=== PATIENT | female | born 1990 | race Asian ===

== ENCOUNTER 2018-09-22 20:35 | Inpatient (IN) | payer OTHER ==
[2018-09-22] MEDS ORDERED: PROMETHAZINE HCL 25 MG/1 ML VIAL IVPUSH ONE (22:03)
[2018-09-22] MEDS ORDERED: BUTORPHANOL TARTRATE 1 MG/ML VIAL IVPB ONE (22:03)
--- NOTE | 2018-09-22 22:11 | HP ---
Past Medical History - Primary Care Physician PCP:: Anselmo Gallegos - Admission Chief Complaint: 28yo P0 with at EGA 39w 5d admitted with SROM and in spont labor. History of Present Illness: Unremarkable PNC Fetus with 2VC Vaginal GBS negative History Source: Patient, Medical Record Limitations to Obtaining History: No Limitations - Past Medical History INTERNAL MEDICINE HOSPITALIST: No: Alzheimer's, CVA, Dementia, Migraine, Multiple Sclerosis, Peripheral Neuropathy, Parkinson's, Seizure, Syncope, TIA, Vertigo, Other Cardiovascular: No: AFIB, Aneurysm, Aortic Insufficiency, Aortic Stenosis, CAD, CHF, Deep Vein Thrombosis, HTN, Hyperlipdemia, NE, Mitral Insufficiency, Mitral Stenosis, Murmur, Pulmonary Hypertension, Other Pulmonary: No: Asthma, Bronchitis, Cancer, COPD, O2 Dependent, Pneumonia, Previously Intubated, Pulmonary Embolus, Pulmonary Fibrosis, Sleep Apnea, Other Gastrointestinal: No: Ascites, Cancer, Constipation, Crohn's Disease, Diverticulitis, Diverticulosis, Esophageal Varices, Gastritis, GERD, GI Bleed, Hemorrhoids, Hiatal Hernia, Inflamatory Bowel Disease, Irritable Bowel Disease, Pancreatitis, Peptic Ulcer Disease, Ulcerative Colitis, Other Hepatobiliary: No: Cirrhosis, Cholelithiasis, Cholecystitis, Choledocholithiasis , Hepatitis A, Hepatitis B, Hepatitis C, Other Renal/: No: Renal Failure, Renal Inusuff, BPH, Cancer, Hematuria, Hemodialysis , Neurogenic Bladder, Renal Calculi, UTI, Other Reproductive: No: Ectopic , Endometriosis, Fibroids, PID, Polycystic Ovary Syndrome, Postmenopausal, Other ...: 1 ...Para: 0 Heme/Onc: Yes: Anemia Infectious Disease: No: AIDS, C-Diff, Herpes Zoster, HIV, MRSA, STD's, Tuberculosis, VREF, Other Psych: No: Addictions, Anxiety, Bipolar, Depression, Panic, Psychosis, Schizophrenia, Other Musculoskeletal: No: Bursitis, Chronic low back pain, Hemiparesis, Hemiplegia, Osteoarthritis, Paraplegia, Other Rheumatology: No: Fibromyalgia, Gout, Lupus, Rheumatoid Arthritis, Sarcoidosis, Vasculitis, Other ENT: No: Allergic Rhinitis, Sinusitis, Other Endocrine: No: Kingfisher's Disease, Conroe's Disease, Diabetes Insipidus, Diabetes Mellitus, Hyperparathyroidism, Hyperthyroidism, Hypothyroidism, Osteopenia, SIADH, Other Dermatology: No: Basal Cell, Cellulitis, Eczema, Melanoma, Psoriasis, Squamous Cell, Other - Past Surgical History Past Surgical History: Yes: None Hx Myomectomy: No Hx Transabdominal Cerclage: No - Advance Directives Advance Directives: No: Living Will, Health Care Proxy, DNR, Organ Donor, Tissue Donor, MOLST - Smoking History Smoking history: Never smoked Have you smoked in the past 12 months: No - Alcohol/Substance Use Hx Alcohol Use: No History of Substance Use: reports: None - Social History Usual Living Arrangement: Yes: Alone ADL: Independent Occupation: [employer] History of Recent Travel: No Home Medications - Allergies Allergies/Adverse Reactions: Allergies Allergy/AdvReac Type Severity Reaction Status Date / Time No Known Allergies Allergy Verified 09/21/18 05:12 - Home Medications Home Medications: Ambulatory Orders Iron 1 tab PO DAILY 09/21/18 One Tablet 1 tab PO DAILY 09/21/18 Family Disease History - Family Disease History Family History: Unremarkable Review of Systems - Review of Systems Constitutional: reports: Other (contractions) Eyes: reports: No Symptoms HENT: reports: No Symptoms Neck: reports: No Symptoms Cardiovascular: reports: No Symptoms Respiratory: reports: No Symptoms Gastrointestinal: reports: No Symptoms Genitourinary: reports: No Symptoms Breasts: reports: No Symptoms Reported Musculoskeletal: reports: No Symptoms Integumentary: reports: No Symptoms Neurological: reports: No Symptoms Endocrine: reports: No Symptoms Hematology/Lymphatic: reports: No Symptoms Psychiatric: reports: No Symptoms Pain Intensity: 8 Physical Exam - Maternity Constitutional: Yes: Well Nourished, No Distress, Calm Eyes: Yes: WNL, Conjunctiva Clear HENT: Yes: WNL, Atraumatic, Normocephalic Neck: Yes: WNL, Supple, Trachea Midline Cardiovascular: Yes: WNL, Regular Rate and Rhythm Lungs: Clear to auscultation, Normal air movement - Abdominal Exam/OB Fundal Height: 40 Number of Fetuses: Single Presentation: Vertex Contractions: Yes Regularity: Irregular (q4-6min) Intensity: Mild/Mod Monitor Mode: External Heart Rate (range): 140 Heart Rate Location: Midline Category: I Accelerations: Uniform Decelerations: None - Vaginal Exam/OB Vaginal Bleediing: No Speculum Exam: No Dilatation (cm): 1 Effacement (%): 50 Amniotic Membrane Status: Leaking Nitrazine Test: Positive Amniotic Fluid: Yes: Clear Presentation: Vertex/Position Station: -1 (Adequate gynecoid) - Physical Exam Musculoskeletal: Yes: WNL Extremities: Yes: WNL Edema: No Integumentary: Yes: WNL Deep Tendon Reflex Grade: Normal +2 ...Motor Strength: WNL Psychiatric: Yes: WNL, Alert, Oriented Hemorrhage Risk Assessment - Risk Factors Medium Risk Factors: Yes: None High Risk Factors: Yes: None Risk Score: 1 Risk Level: Medium Risk Imaging - Results Ultrasound: Report Reviewed Assessment/Plan 28yo P0 with at EGA 39w 5d admitted with SROM and in spont labor. Fetus with Category I tracing. Plan to monitor labor at this point. Pt requested pain meds with IV sedation.
[2018-09-22] MEDS ORDERED: DEXTROSE 5%-LACTATED RINGERS 1,000 ML IV SCH (22:15)
[2018-09-22] MEDS ORDERED: PROMETHAZINE HCL 25 MG/1 ML VIAL ONE (22:42)
[2018-09-22] MEDS ORDERED: BUTORPHANOL TARTRATE 2 MG/ML VIAL ONE (22:42)
[2018-09-22 22:47] LABS: BASO % 0.2 % (0-2.0); EOS % 0.2 % (0-4.5); HEMATOCRIT 38.5 % (32.4-45.2); HEMOGLOBIN 12.7 GM/dL (10.7-15.3); LYMPH % 11.8 % (8-40); MCH 33.8 pg (25.7-33.7); MEAN CELL VOLUME 102.4 fl (80-96); MEAN PLT VOLUME 10.4 fl (7.5-11.1); MONO % 5.8 % (3.8-10.2); PLATELET COUNT 280 K/MM3 (134-434); RBC 3.76 M/mm3 (3.60-5.2); RDW 13.2 % (11.6-15.6)
[2018-09-22 23:05] LABS: INR 0.92 (0.83-1.09); PROTHROMBIN TIME (PATIENT) 10.9 SEC (9.7-13.0)
[2018-09-22 23:07] LABS: ACTIVATED PTT 28.2 SECONDS (25.2-36.5)
[2018-09-22 23:11] LABS: CALCIUM 9.9 mg/dL (8.5-10.1); CREATININE 0.6 mg/dL (0.55-1.3); POTASSIUM 3.9 mmol/L (3.5-5.1)
--- NOTE | 2018-09-23 00:49 | PN ---
Progress Note (short form) - Note Progress Note: I was informed by the RN at 12 am that apreliminary HIV test for this patient showed a "positive" HIV P24 result. The lab also informed the RN that a viral load cannot be performed at this hospital in a timely fashion and the results are not going to be available for 2-3 days. I reviewed the ACOG Committee Opinion# 751 from Sep, 1999 that states: "... In contrast, in women with viral loads more than 1,000 copies/mL or unknown viral loads who present at term in labor or with ruptured membranes, it is unclear whether urgent delivery offers the same mitigation of [id number] transmission risk as a scheduled delivery. Some studies have shown a similar risk of transmission for delivery performed for obstetric indications after labor and membrane rupture as for vaginal delivery. In one study, the HIV transmission rate was similar in women undergoing emergency delivery and those delivering vaginally (1.6% versus 1.9%, respectively) (20). A meta-analysis of women with HIV, most of whom were receiving no antiretroviral drugs or only ZDV, demonstrated a 2% increased transmission risk for every additional hour of ruptured membranes ( 16). However, it is not clear how soon after the onset of labor or the rupture of membranes the benefit of delivery is lost (21). Because it is not clear whether delivery after onset of labor reduces the risk of HIV transmission, management of women originally scheduled for delivery who present in labor should be individualized at the time of presentation. In these circumstances, consultation with an expert in HIV may be helpful. Because the delivery plan in the setting of labor must frequently be made quickly, telephone consultation with a 24-hour, 7-days-a- week hotline (eg, the National [facility] [ ]) may be helpful in rapidly developing an individualized plan (11 )." The patient was previously tested for HIV x 2 during care, with "Negative" results. She was given sedation with Stadol and Phenergan earlier today for pain management, making a discussion of this information difficult. The plan it to repeat HIV testing to rule out error. I also plan to contact the National [facility].
[2018-09-23 00:58] VITALS: BMI 25.0
--- NOTE | 2018-09-23 02:28 | PN ---
Progress Note (short form) - Note Progress Note: I spoke to Dr. Hannon (?sp) at the [facility] for expert guidance. The advice was to start the pt on AZT as a precaution. The rapid HIV P24 result has can be a false positive . However , a confirmatory test is sent out and will not result for 2-3 days. The viral load is also unavailable. The data shows that the risk of vertical HIV transmission is reduced in patients with a high VL (>1000 copies/ml) if an elective C/S is done electively and before labor. The data on the effect of delivery mode on the risk of vertical HIV transmission in patients who are in labor with SROM >12hrs is conflicting. There may not be any additional benefit to perform a C/S at this time. The patient is in spontaneous labor since the morning of 09/22/2018 and SROM since about 2pm on 09/22/2018. I had a long discussion with the patient in private and presented the above information. The pt is a [employer] WORK[employer] at [employer]. She denies any HIV exposure, needle stick or high-risk behavior. Her is in [place] and she has not seen him since 2017. The pt states that she was previously tested for HIV at work, and she has HIV testing "negative" in . The patient also, later, requested her sister to come in for discussion. We had reviewed all of the information again. I explained that, if the patient has HIV and the viral load is high, there may be a benefit to doing a C/S but the evidence is conflicting. The transmission can happen in utero, and prior to delivery. There is also a chance that the the test result represents a "false positive". The risks and benefits of C/S were also explained at length, including but not limited to scarring, pain, bleeding, infection, injury to underlying organs and structures, need for additional surgery to repair/treat any problems or complications, complications/injuries, etc. The pt verbalized her understanding. The pt requested some time to consider her options.
--- NOTE | 2018-09-23 02:51 | PN ---
Ante-Partal Exam - Subjective Subjective: Pt with contractions. She and her family are considering a C/S because it might , possibly, decrease the risk vertical HIV transmission. I emphasized that the HIV test results can be false positive, and transmission can happen in labor before delivery. We reviewed the risks of C/S. Vital Signs: Vital Signs Temperature 98.3 F 09/23/18 02:00 Pulse Rate 88 09/23/18 02:00 Respiratory Rate 20 09/23/18 02:00 Blood Pressure 116/69 09/23/18 02:00 O2 Sat by Pulse Oximetry (%) Bleeding: No Headache: No Visual changes: No Right upper quadrant pain: No Pain (scale 1-10): 5 - Contractions Contractions: Yes Regularity: Regular Intensity: Mild/Mod Monitor Mode: External - Exam during Labor Heart Rate: 140 Variability: Moderate Heart Rate Location: Midline Category: I Monitor Accelerations: Present Monitor Decelerations: None Exam: Vaginal Dilatation (cm): 3 Effacement (%): 90 Amniotic Membrane Status: Leaking Amniotic Fluid: Clear Presentation: Vertex Station: 0 - Intrapartum Hemorrhage Risk Medium Risk Factors: None High Risk Factors: None Risk Score: 0 Risk Level: Low Risk - Assessment/Plan Assessment/Plan: Pt is in spontaneous labor, progressing in latent phase. The fetus with category I tracing. She and her family are considering a C/S because it might, possibly, decrease the risk vertical HIV transmission. I emphasized that the HIV test results can be false positive, and transmission can happen in labor before delivery. We reviewed the risks of C/S. I plan to start AZT and continue till delivery. The mode of delivery is undecided at this time.
[2018-09-23] MEDS ORDERED: ZIDOVUDINE INJECTION 1,000 MG in DEXTROSE 5%-WATER - 150 ML IVPB SCH (03:00)
[2018-09-23] MEDS: ZIDOVUDINE INJECTION 1,000 MG in DEXTROSE 5%-WATER - 150 ML IVPB SCH ×2 (03:15→17:41)
[2018-09-23] MEDS ORDERED: OXYTOCIN 15 UNITS/ LR 250 ML 15 UNIT/250 ML INFUS.BAG IVPB SCH (06:00)
[2018-09-23] MEDS ORDERED: FENTANYL/BUPIVACAINE/NS/PF - PCEA - 50 ML DISP.SYRIN EP ONE ×2 (06:11→11:32)
[2018-09-23] MEDS ORDERED: BUPIVACAINE HCL/PF 0.25% (2.5MG/ML) 10 ML VIAL ONE (06:13)
[2018-09-23] MEDS ORDERED: LIDO 2%/EPI 1:200000 PRESRVFRE (20 ML SDVIAL) ONE (06:13)
[2018-09-23] MEDS ORDERED: NALOXONE HCL 0.4 MG/ML VIAL IVPUSH PRN (06:38)
[2018-09-23] MEDS: FENTANYL/BUPIVACAINE/NS/PF - PCEA - 50 ML DISP.SYRIN EP SCH ×2 (06:45→11:45)
[2018-09-23] MEDS ORDERED: ELECTROLYTE-148 SOLN 500 ML IV ONE (07:00)
[2018-09-23] MEDS ORDERED: AMPICILLIN - 2 GM in SODIUM CHLORIDE 100 ML IVPB ONE (07:10)
[2018-09-23] MEDS ORDERED: AMPICILLIN SODIUM 2 GM VIAL ONE (07:10)
[2018-09-23] MEDS: ELECTROLYTE-148 SOLN 1,000 ML IV SCH ×2 (07:30→11:30)
[2018-09-23] MEDS ORDERED: OXYTOCIN 30 UNITS in 0.9% NS 30 UNIT/500 ML INFUS.BAG IVPB ONE (07:50)
[2018-09-23] MEDS: OXYTOCIN 30 UNITS in 0.9% NS 30 UNIT/500 ML INFUS.BAG IVPB SCH (08:00)
--- NOTE | 2018-09-23 08:02 | PN ---
Ante-Partal Exam - Subjective Subjective: Pt w/o complaints. Contractions have spaced out. Vital Signs: Vital Signs Temperature 98.3 F 09/23/18 06:00 Pulse Rate 94 H 09/23/18 07:15 Respiratory Rate 20 09/23/18 07:15 Blood Pressure 115/71 09/23/18 07:15 O2 Sat by Pulse Oximetry (%) 96 09/23/18 07:36 Bleeding: No Headache: No Visual changes: No Right upper quadrant pain: No Pain (scale 1-10): 0 - Contractions Contractions: Yes Regularity: Irregular Intensity: Unaware Monitor Mode: External - Exam during Labor Heart Rate: 140 Variability: Moderate Heart Rate Location: Midline Category: I Monitor Accelerations: Present Monitor Decelerations: None Presentation: Vertex - Intrapartum Hemorrhage Risk Medium Risk Factors: None High Risk Factors: None Risk Score: 0 Risk Level: Low Risk - Assessment/Plan Assessment/Plan: Fetus wit Category I tracing. Plan to augment contractions with pitocin.
[2018-09-23] MEDS ORDERED: DEXTROSE 5%-LACTATED RINGERS 1,000 ML IV SCH ×2 (08:30→12:15)
[2018-09-23] MEDS ORDERED: AMPICILLIN SODIUM 1 GM VIAL ONE ×2 (11:00→14:52)
[2018-09-23] MEDS ORDERED: SODIUM CHLORIDE 100 ML IVPB ONE ×2 (11:01→14:52)
[2018-09-23] MEDS: AMPICILLIN - 1 GM in SODIUM CHLORIDE 100 ML IVPB SCH ×2 (11:20→14:56)
--- NOTE | 2018-09-23 11:24 | PN ---
Ante-Partal Exam - Subjective Subjective: Pt w/o complaints, s/p epidural placed. Vital Signs: Vital Signs Temperature 98.6 F 09/23/18 10:00 Pulse Rate 86 09/23/18 10:30 Respiratory Rate 16 09/23/18 10:30 Blood Pressure 92/57 L 09/23/18 10:30 O2 Sat by Pulse Oximetry (%) 99 09/23/18 10:30 Bleeding: No Headache: No Visual changes: No Right upper quadrant pain: No Pain (scale 1-10): 0 - Contractions Contractions: Yes Regularity: Irregular Intensity: Moderate Monitor Mode: External - Exam during Labor Heart Rate: 150 Variability: Moderate Heart Rate Location: Midline Category: I Monitor Accelerations: Present Monitor Decelerations: None Exam: Vaginal Dilatation (cm): 4 Effacement (%): 90 Amniotic Membrane Status: Ruptured (forebag) Meconium Staining: Light Presentation: Vertex Station: 0 - Intrapartum Hemorrhage Risk Medium Risk Factors: None High Risk Factors: None Risk Score: 0 Risk Level: Low Risk - Assessment/Plan Assessment/Plan: 28yo P0 with at EGA 39w6d in labor. Pt decided to proceed with DOMINIC and vaginal delivery. She is progressing slowly in latent labor. Plan to continue AZT and pitocin
[2018-09-23] MEDS ORDERED: OXYTOCIN 20 UNITS in 0.9% NS 20 UNIT/1,000 ML INFUS.BAG IV ONE (16:21)
--- NOTE | 2018-09-23 16:39 | PN ---
Ante-Partal Exam - Subjective Subjective: No complaints. Pt was pushing and now resting. Vital Signs: Vital Signs Temperature 98.1 F 09/23/18 14:00 Pulse Rate 95 H 09/23/18 15:45 Respiratory Rate 20 09/23/18 15:45 Blood Pressure 114/63 09/23/18 15:45 O2 Sat by Pulse Oximetry (%) 97 09/23/18 15:45 Bleeding: No Headache: No Visual changes: No Right upper quadrant pain: No Pain (scale 1-10): 3 - Contractions Contractions: Yes Regularity: Irregular Intensity: Unaware Monitor Mode: External - Exam during Labor Heart Rate: 145 Variability: Moderate Heart Rate Location: Midline Category: II Monitor Accelerations: Present Monitor Decelerations: Variable (occasionally) Exam: Vaginal Dilatation (cm): 10 Effacement (%): 100 Amniotic Membrane Status: Ruptured Meconium Staining: Light Presentation: Vertex Station: +2 - Intrapartum Hemorrhage Risk Medium Risk Factors: None High Risk Factors: None Risk Score: 0 Risk Level: Low Risk - Assessment/Plan Assessment/Plan: Pt in second stage of labor. The pt is now resting. The pt will resume the pushing. FHT recovered and is now category I but had a prolonged decel earlier.
[2018-09-23] MEDS ORDERED: ceFAZolin SODIUM 1 GM VIAL ONE (19:22)
[2018-09-23] MEDS ORDERED: SODIUM CHLORIDE 0.9% P/F 10 ML VIAL IJ ONE (19:22)
--- NOTE | 2018-09-23 19:23 | PN ---
Ante-Partal Exam - Subjective Subjective: vtx at +3 station. The pt has been pushing for 3.5 hrs. The FHT showed moderate variability and decels with pushing but promt recovery. The pt requested operative assistance. Risks, benefits were discussed and the pt was told that failed operative delivery will follow by a C/S. She agreed and consent was signed. Vital Signs: Vital Signs Temperature 98.1 F 09/23/18 18:00 Pulse Rate 100 H 09/23/18 18:00 Respiratory Rate 22 H 09/23/18 18:00 Blood Pressure 128/84 09/23/18 18:00 O2 Sat by Pulse Oximetry (%) 100 09/23/18 17:45 Bleeding: No Headache: No Visual changes: No Right upper quadrant pain: No Pain (scale 1-10): 9 - Contractions Contractions: Yes Regularity: Regular Intensity: Mod/Strong Monitor Mode: External - Exam during Labor Heart Rate: 120 Variability: Moderate Heart Rate Location: Midline Category: II Monitor Accelerations: Present Monitor Decelerations: Early Exam: Vaginal Dilatation (cm): 10 Effacement (%): 100 Amniotic Membrane Status: Leaking Amniotic Fluid: Clear Presentation: Vertex Station: +3 Remarks: Gynecoid pelvimetry - Intrapartum Hemorrhage Risk Medium Risk Factors: None High Risk Factors: None Risk Score: 0 Risk Level: Low Risk - Assessment/Plan Assessment/Plan: vtx at +3 station. The pt has been pushing for 3.5 hrs. The FHT showed moderate variability and decels with pushing but prompt recovery. The pt requested operative assistance. Risks, alternatives, and benefits were discussed and the pt was told that failed operative delivery will follow by a C/ S. She agreed and consent was signed. Vacuum delivery was attempted. Midline episiotomy was cut. Pt's effort is poor and vacuum was abandoned after 3 pulls. The tracing is now Category I now with moderate variability and early decels. Pt has the urge to push. Decision was made to proceed with C/S. We discussed the risks and benefits of C/S at length, including but not limited to scarring, pain, bleeding, infection, injury to underlying organs and structures, need for additional surgery to repair/treat any problems or complications, complications/injuries, etc. The pt verbalized her understanding and requested to proceed with surgery. The pt is aware that all surgeries have risks and no guarantees can be provided. Pt' s mother an sister are present for discussion.
[2018-09-23] MEDS ORDERED: OXYTOCIN 10 UNITS/ML VIAL ONE (19:51)
[2018-09-23] MEDS ORDERED: morphine SULFATE/Preservative Free 0.5 MG/ML (1cc Syringe) ONE ×7 (20:04→20:28)
[2018-09-23] MEDS ORDERED: morphine SULFATE/Preservative Free 0.5 MG/ML (1cc Syringe) EP ONE (20:17)
[2018-09-23] MEDS ORDERED: ONDANSETRON 4 MG/2 ML VIAL IVPUSH PRN (20:17)
[2018-09-23] MEDS ORDERED: MEPERIDINE HCL 25 MG/ML VIAL IVPUSH ONE (20:45)
[2018-09-23] MEDS ORDERED: BENZOCAINE 28 GM HEMORRHOIDAL OINTMENT TP PRN (21:26)
[2018-09-23] MEDS ORDERED: METHYLERGONOVINE MALEATE 0.2 MG/1 ML AMP IM PRN (21:26)
[2018-09-23] MEDS ORDERED: BENZOCAINE 20% 57 GM BOTTLE TP PRN (21:26)
[2018-09-23] MEDS ORDERED: IBUPROFEN 800 MG/8 ML IJ IVPB PRN (21:26)
[2018-09-23] MEDS ORDERED: WITCH HAZEL 50% (TUCKS) 40 PAD/JAR PAD TP PRN (21:26)
[2018-09-23 21:32] LABS: ARTERIAL BLD GAS O2 SATURATION 76.3 % (95-98); ARTERIAL BLOOD GAS PCO2 43.4 mmHg (35-45); ARTERIAL BLOOD GAS pH 7.32 (7.35-7.45)
--- NOTE | 2018-09-23 21:32 | OP ---
Operative Note - Note: Operative Date: 09/23/18 Pre-Operative Diagnosis: at EGA 39w6d, arrest of descent, failled attempt of vacuum delivery Operation: Primary LT C/S, repair of midline episiotomy Findings: Live baby girl, 9-9, Wt 6lb 13oz, meconium in amniotic fluid, 2VC, normal placenta, uterus, tubes, ovaries Post-Operative Diagnosis: Same as Pre-op Surgeon: Anselmo Gallegos Assembly Person: Danish Young Anesthesiologist/SANITARY PLUMBER: Rj Lazar Anesthesia: Epidural Specimens Removed: Placenta Estimated Blood Loss (mls): 600 Drains & Tubes with Location: Dey cath Drains, Volume Out (mls): 250 Blood Volume Replaced (mls): 0 Fluid Volume Replaced (mls): 1,000 Operative Report Dictated: Yes
[2018-09-23 21:38] LABS: VENOUS PC02 48.2 mmHg (41-51); VENOUS PH 7.29 (7.31-7.41)
[2018-09-23 21:41] LABS: VENOUS PO2 26.7 mmHg (30-40)
[2018-09-23 21:43] LABS: ARTERIAL BLOOD GAS PO2 39.8 mmHg (80-105)
[2018-09-24] MEDS: CEFAZOLIN 1 GM/D5W 1 GM/50 ML BAG IVPB SCH ×3 (02:18→17:28)
[2018-09-24] MEDS: ELECTROLYTE-148 SOLN 1,000 ML IV SCH (07:30)
[2018-09-24 08:03] LABS: BASO % 0.2 % (0-2.0); EOS % 0.1 % (0-4.5); HEMATOCRIT 29.3 % (32.4-45.2); LYMPH % 9.2 % (8-40); MCH 34.8 pg (25.7-33.7); MCHC 33.9 g/dl (32.0-36.0); MEAN CELL VOLUME 102.6 fl (80-96); MEAN PLT VOLUME 10.1 fl (7.5-11.1); MONO % 5.9 % (3.8-10.2); NEUT % 84.6 % (42.8-82.8); PLATELET COUNT 221 K/MM3 (134-434); RBC 2.86 M/mm3 (3.60-5.2); RDW 13.2 % (11.6-15.6); WHITE BLOOD COUNT 18.9 K/mm3 (4.0-10.0)
[2018-09-24] MEDS: PRENATAL VITAMINS W/ FOLIC ACID TABLET (FP) PO SCH (09:00)
[2018-09-24] MEDS: ENOXAPARIN NA (PORCINE) 40 MG/0.4 ML DISP.SYRIN SQ SCH (09:11)
--- NOTE | 2018-09-24 10:46 | PN ---
Post Progress Note - Subjective Subjective: Patient without acute complaints. Reports tolerating oral intake without nausea or vomiting at this time, but had vomiting postop last light. Did not ammbulate yet. Denies fevers or chills. Pain well controlled with oral pain medication.. Passing flatus, no BM. Post Day: 1 Type of Delivery: Primary C/S Vital Signs: Vital Signs Temperature 97.7 F 09/24/18 08:10 Pulse Rate 105 H 09/24/18 08:10 Respiratory Rate 18 09/24/18 09:25 Blood Pressure 103/63 09/24/18 08:10 O2 Sat by Pulse Oximetry (%) 99 09/23/18 21:30 Breast Exam: Yes: Soft Uterus: Yes: Fundus Firm, Fundus below umbilicus, Non-tender Incision: Yes: Dressing dry and intact Abdomen/GI: Yes: Abdomen soft, Passing flatus, Tolerating PO Lochia: Yes: Rubra Lochia, amount: Small Extremities: Yes: Calves non-tender, Edema Perineum: Yes: Episiotomy (repair is intact) Activity: Ambulating - Labs Labs: CBC WBC 18.9 K/mm3 (4.0-10.0) H 09/24/18 07:00 RBC 2.86 M/mm3 (3.60-5.2) L 09/24/18 07:00 Hgb 10.0 GM/dL (10.7-15.3) L 09/24/18 07:00 Hct 29.3 % (32.4-45.2) L D 09/24/18 07:00 MCV 102.6 fl (80-96) H 09/24/18 07:00 MCH 34.8 pg (25.7-33.7) H 09/24/18 07:00 MCHC 33.9 g/dl (32.0-36.0) 09/24/18 07:00 RDW 13.2 % (11.6-15.6) 09/24/18 07:00 Plt Count 221 K/MM3 (134-434) D 09/24/18 07:00 MPV 10.1 fl (7.5-11.1) 09/24/18 07:00 Absolute Neuts (auto) 16.0 K/mm3 (1.5-8.0) H 09/24/18 07:00 Neutrophils % 84.6 % (42.8-82.8) H 09/24/18 07:00 Lymphocytes % 9.2 % (8-40) D 09/24/18 07:00 Monocytes % 5.9 % (3.8-10.2) 09/24/18 07:00 Eosinophils % 0.1 % (0-4.5) 09/24/18 07:00 Basophils % 0.2 % (0-2.0) 09/24/18 07:00 Nucleated RBC % 0 % (0-0) 09/24/18 07:00 Assessment/Plan 28yo P1 s/p primary LT C/S, doing well stable, afebrile. Asymptomatic for anemia. care instructions reviewed. Continue routine care. Ambulation encouraged Plan to f/u HIV final report.
--- NOTE | 2018-09-24 14:06 | PN ---
Progress Note, Physician Chief Complaint: s/p c section post op dayone History of Present Illness: under epidural anesthesia with duramorph for post op pain control - Current Medication List Current Medications: Active Medications Benzocaine (Americaine 20% [place] -) 1 spray TP PRN PRN PRN Reason: Pain - Topical Benzocaine (Americaine Ointment -) 1 applic TP PRN PRN PRN Reason: Pain - Topical Bisacodyl (Dulcolax Suppository -) 10 mg RC PRN PRN PRN Reason: CONSTIPATION Diphenhydramine HCl (Benadryl Injection -) 25 mg IVPUSH Q4H PRN PRN Reason: Pruritis Enoxaparin Sodium (Lovenox -) 40 mg SQ DAILY [facility] Last Admin: 09/24/18 09:11 Dose: 40 mg Fentanyl/Bupivacaine/Sodium Chlor (Bupivicaine 0.125%/Fentanyl 2mcg/Ml Pcea) 50 ml EP [facility]; Protocol Last Admin: 09/23/18 11:45 Dose: 50 ml Oxytocin/Sodium Chloride (Normal Saline+30 Units Oxytocin) 30 unit in 500 mls @ 1 mls/hr IVPB TITR [facility]; Protocol Last Titration: 09/23/18 13:10 Dose: 0.18 unit/hr, 3 mls/hr Parenteral Electrolytes (Plasma-Lyte 148 -) 1,000 mls @ 125 mls/hr IV [facility] Last Admin: 09/23/18 11:30 Dose: 125 mls/hr Cefazolin Sodium (Ancef 1 Gm Premixed Ivpb -) 1 gm in 50 mls @ 100 mls/hr IVPB Q8H-IV BAYRON Stop: 09/25/18 01:59 Last Admin: 09/24/18 10:34 Dose: 100 mls/hr Ibuprofen (Motrin -) 600 mg PO Q4H PRN PRN Reason: PAIN LEVEL 1 - 3 Ibuprofen (Caldolor Injection -) 800 mg IVPB Q8H PRN PRN Reason: PAIN LEVEL 1-5 Last Admin: 09/24/18 08:59 Dose: 800 mg Methylergonovine Maleate (Methergine Injection -) 0.2 mg IM Q4H PRN PRN Reason: Excessive Bleeding (L&D) Naloxone HCl (Narcan -) 0.4 mg IVPUSH PRN PRN PRN Reason: Sedation Ondansetron HCl (Zofran Injection) 4 mg IVPUSH Q4H PRN PRN Reason: NAUSEA Last Admin: 09/24/18 07:40 Dose: 4 mg Oxycodone HCl (Roxicodone -) 5 mg PO Q4H PRN PRN Reason: PAIN LEVEL 4 - 6 Multivit/Folic Acid/Iron ( Vitamins (Sjr) -) 1 tab PO DAILY BAY[facility] Last Admin: 09/24/18 09:00 Dose: 1 tab Senna/Docusate Sodium (Pericolace -) 2 tablet PO HS PRN PRN Reason: CONSTIPATION Simethicone (Mylicon -) 80 mg PO Q4H PRN PRN Reason: GAS Witch Xin/Glycerin (Tucks Pads -) 1 pad TP PRN PRN PRN Reason: Pain - Topical - Objective Vital Signs: Vital Signs Temperature 98.6 F 09/24/18 12:00 Pulse Rate 90 09/24/18 12:00 Respiratory Rate 16 09/24/18 12:56 Blood Pressure 96/67 09/24/18 12:00 O2 Sat by Pulse Oximetry (%) 99 09/23/18 21:30 Constitutional: Yes: Well Nourished Cardiovascular: Yes: WNL Respiratory: Yes: WNL Gastrointestinal: Yes: WNL Labs: CBC, BMP 09/24/18 07:00 09/22/18 22:30 INR, PTT INR 0.92 (0.83-1.09) 09/22/18 22:30 Assessment/Plan No adverse anesthetic effects, pain controlled, dept of anesthesiology will sign off care at this time
[2018-09-24] MEDS: IBUPROFEN 600 MG TABLET (FP) PO PRN ×2 (17:28→21:48)
[2018-09-24] MEDS: SIMETHICONE 80 MG TAB.CHEW (FP) PO PRN ×2 (17:29→21:48)
[2018-09-24] MEDS: oxyCODONE HCL 5 MG TABLET PO PRN (17:29)
[2018-09-24] MEDS: FENTANYL/BUPIVACAINE/NS/PF - PCEA - 50 ML DISP.SYRIN EP SCH (19:20)
--- NOTE | 2018-09-24 20:08 | OP ---
DATE OF OPERATION: 09/23/2018 PREOPERATIVE DIAGNOSIS: at estimated gestational age of 39 weeks and 6 days, arrest of descent, failed attempt of vacuum delivery. POSTOPERATIVE DIAGNOSIS: at estimated gestational age of 39 weeks and 6 days, arrest of descent, failed attempt of vacuum delivery, delivered. PROCEDURE: Primary low transverse section, repair of midline episiotomy. SURGEON: Anselmo Gallegos MD AFFILIATE MARKETING COORDINATOR: JENN Terrazas ANESTHESIOLOGIST: Rj Lazar MD ANESTHESIA: Epidural. COMPLICATIONS: None. ESTIMATED BLOOD LOSS: 600 mL. IV FLUIDS: 1000 mL. URINE OUTPUT: 250 mL clear urine at the end of the procedure. PATHOLOGY: Placenta. FINDINGS: A live baby girl in vertex presentation. Meconium in amniotic fluid was noted. Apgars 9 and 9. A normal placenta with a 2-vessel umbilical cord. Normal uterus, tubes, and ovaries. Baby's weight 6 pounds, 13 ounces. DESCRIPTION OF PROCEDURE: The patient was managed during her labor and delivery. She had achieved a full dilation of 10 cm of her cervix. The vertex was in right occiput posterior and +3 station. In the labor room, a vacuum delivery was attempted; however, after the 3 pulls, the vacuum delivery was abandoned, and the decision was made to proceed with a section. heart rate remained category 1. Anesthesia was notified. The surgical asst was called. The Neonatology was notified of the decision to switch from vacuum delivery to section. The risks, benefits, and alternatives of section were discussed with the patient. The consent form was reviewed and signed. The patient asked questions and verbalized her understanding. The patient was then brought to the OR with the IV running. She was placed on the surgical table in a supine position. The epidural anesthesia was bolused, and the level was found to be adequate. The patient was prepped and draped in the usual sterile fashion. A Dey catheter was left to drain to gravity. The time-out procedure was conducted as per standard protocol. A Pfannenstiel skin incision was made with the knife approximately 2 cm above the pubic symphysis. The incision was carried down to the level of the fascia with a knife. The fascia was incised in the midline, and the incision was extended bilaterally using Waterman scissors. The rectus muscles were in the midline using sharp and blunt dissection. The peritoneum was identified and entered sharply. The peritoneal incision was extended superiorly and inferiorly. The bladder peritoneum was then dissected away from the lower uterine segment using sharp dissection. The bladder was reflected downward using a Darshana retractor. The lower uterine segment was incised transversely using a knife. The incision was extended bilaterally using bandage scissors. The baby was delivered from vertex presentation and without complications. The baby was crying spontaneously immediately upon delivery. The umbilical cord was clamped and cut. The baby was handed to the awaiting sanitation associate. The placenta was then removed manually and without complications. The uterus was exteriorized and cleared of all clots and debris. The uterine incision was repaired using a 0 Biosyn suture with good hemostasis and approximation. The uterine incision was then imbricated using a secondary layer of closure with a 0 Biosyn suture. The bladder peritoneum was reapproximated using a 0 Biosyn suture. The uterus was replaced into the abdominal/pelvic cavity. The operative site was irrigated using copious amounts of normal saline. Once the saline was aspirated, good hemostasis was confirmed. The parietal peritoneum was closed using a 2-0 chromic suture. The rectus muscles were approximated in the midline using several interrupted 2-0 chromic sutures. The fascia was closed using a 0 Vicryl suture. The skin was closed using a 4-0 Vicryl suture with a subcutaneous stitch. Sponge, lap, needle counts were correct. The patient tolerated the procedure well, and she was transferred to the recovery room in stable condition and awake. A midline perineal episiotomy was repaired after the section was completed, while she was still on the surgical table. The repair of episiotomy was performed in a standard fashion and without complication. Excellent approximation was noted, and the patient tolerated episiotomy repair without any problems. Rey [id number]
[2018-09-24] MEDS ORDERED: BISACODYL 10 MG SUPP.RECT RC PRN (21:26)
[2018-09-24] MEDS: ACETAMINOPHEN 325 MG TABLET (FP) PO PRN (21:49)
[2018-09-24] MEDS: SENNOSIDES/DOCUSATE COMBO (SENNA PLUS) TABLET (UD) PO PRN (21:49)
[2018-09-25] MEDS: FENTANYL/BUPIVACAINE/NS/PF - PCEA - 50 ML DISP.SYRIN EP SCH (08:05)
[2018-09-25] MEDS: PRENATAL VITAMINS W/ FOLIC ACID TABLET (FP) PO SCH (09:09)
[2018-09-25] MEDS: ENOXAPARIN NA (PORCINE) 40 MG/0.4 ML DISP.SYRIN SQ SCH (09:09)
[2018-09-25] MEDS: IBUPROFEN 600 MG TABLET (FP) PO PRN ×3 (09:09→22:40)
[2018-09-25] MEDS: ACETAMINOPHEN 325 MG TABLET (FP) PO PRN ×2 (09:10→22:41)
[2018-09-25] MEDS: SIMETHICONE 80 MG TAB.CHEW (FP) PO PRN ×3 (09:10→22:40)
--- NOTE | 2018-09-25 10:18 | PN ---
Post Progress Note - Subjective Subjective: Patient without acute complaints. Reports tolerating oral intake without nausea or vomiting. Ambulating without dizziness. Denies fevers or chills. Pain well controlled with oral pain medication. Pumping without difficulty, giving formula to the baby, awaiting HIV test results Passing flatus. Post Day: 2 Type of Delivery: Primary C/S Vital Signs: Vital Signs Temperature 98.2 F 09/25/18 09:00 Pulse Rate 92 H 09/25/18 09:00 Respiratory Rate 18 09/25/18 09:00 Blood Pressure 133/65 09/25/18 09:00 O2 Sat by Pulse Oximetry (%) 99 09/24/18 22:00 Breast Exam: Yes: Soft Uterus: Yes: Fundus Firm, Fundus @ umbilicus Incision: Yes: Dressing dry and intact Abdomen/GI: Yes: Abdomen soft Lochia: Yes: Rubra Lochia, amount: Small Extremities: Yes: Calves non-tender Perineum: Yes: Intact Activity: Other (in the chair) - Labs Labs: CBC WBC 18.9 K/mm3 (4.0-10.0) H 09/24/18 07:00 RBC 2.86 M/mm3 (3.60-5.2) L 09/24/18 07:00 Hgb 10.0 GM/dL (10.7-15.3) L 09/24/18 07:00 Hct 29.3 % (32.4-45.2) L D 09/24/18 07:00 MCV 102.6 fl (80-96) H 09/24/18 07:00 MCH 34.8 pg (25.7-33.7) H 09/24/18 07:00 MCHC 33.9 g/dl (32.0-36.0) 09/24/18 07:00 RDW 13.2 % (11.6-15.6) 09/24/18 07:00 Plt Count 221 K/MM3 (134-434) D 09/24/18 07:00 MPV 10.1 fl (7.5-11.1) 09/24/18 07:00 Absolute Neuts (auto) 16.0 K/mm3 (1.5-8.0) H 09/24/18 07:00 Neutrophils % 84.6 % (42.8-82.8) H 09/24/18 07:00 Lymphocytes % 9.2 % (8-40) D 09/24/18 07:00 Monocytes % 5.9 % (3.8-10.2) 09/24/18 07:00 Eosinophils % 0.1 % (0-4.5) 09/24/18 07:00 Basophils % 0.2 % (0-2.0) 09/24/18 07:00 Nucleated RBC % 0 % (0-0) 09/24/18 07:00 Assessment/Plan 28yo P1 s/p Primary c/section for failed maternal effort Awaiting final HIV testing otherwise afebrile, VSS WBC mildly elevated, repeat CBC for 09/26/18 ordered encourage ambulation continue routine care
[2018-09-25] MEDS: oxyCODONE HCL 5 MG TABLET PO PRN (15:34)
--- NOTE | 2018-09-25 17:36 | PATH ---
Surgical Pathology Report Patient Name: CORINNE ELDER Med. Rec. #: [id number] /Age/Gender: 1990 (Age: 28) / F Account: [id number] Location: [facility] OBS/GROUP MANAGER Taken: 09/23/2018 Received: 09/24/2018 Reported: 09/25/2018 Physicians: Anselmo Gallegos M.D. Specimen(s) Received PLACENTA Clinical History 39.6 week gestational, HIV positive results Final Diagnosis PLACENTA: THIRD TRIMESTER PLACENTA. TWO VESSEL CORD (SINGLE UMBILICAL ARTERY). MEMBRANES WITH NO DIAGNOSTIC ABNORMALITIES. Electronically Signed Claribel Phillips M.D. Gross Description The specimen is received fresh labeled placenta and is a 515 gram, 19 x18 x 2.1cm. placenta with attached membranes and umbilical cord. The attached membranes are glistening, translucent, and insert marginally. The umbilical cord measures 14 cm. in length and averages 0.9 cm. in diameter. The cord inserts centrally, 5 centimeter to the nearest margin. No true knots or strictures are identified. Cut surface of the umbilical cord reveals 2 vessels. Sectioning reveals red-brown, spongy parenchyma. No lesions are identified. Director Social Welfare sections are submitted in three cassettes as follows: 1- membrane rolls and umbilical cord; 2-3- full thickness sections of placenta KWS/09/24/2018 [place]/09/24/2018
[2018-09-25 18:13] LABS: HEP B CORE AB, IGM Negative (Negative); HEP B CORE AB, TOT Negative (Negative)
[2018-09-25] MEDS: SENNOSIDES/DOCUSATE COMBO (SENNA PLUS) TABLET (UD) PO PRN (22:41)
[2018-09-26 07:16] LABS: BASO % 0.5 % (0-2.0); EOS % 1.3 % (0-4.5); HEMOGLOBIN 9.4 GM/dL (10.7-15.3); MCH 34.7 pg (25.7-33.7); MCHC 33.6 g/dl (32.0-36.0); MEAN CELL VOLUME 103.2 fl (80-96); MEAN PLT VOLUME 8.8 fl (7.5-11.1); MONO % 4.3 % (3.8-10.2); NEUT % 79.9 % (42.8-82.8); PLATELET COUNT 274 K/MM3 (134-434); RBC 2.72 M/mm3 (3.60-5.2); RDW 13.5 % (11.6-15.6); WHITE BLOOD COUNT 11.4 K/mm3 (4.0-10.0)
--- NOTE | 2018-09-26 07:54 | PN ---
Post Progress Note - Subjective Subjective: Patient without acute complaints. Reports tolerating oral intake without nausea or vomiting. Ambulating without dizziness. Denies fevers or chills. Pain well controlled with oral pain medication. Pumping/breast feeding without issue. Type of Delivery: Primary C/S Vital Signs: Vital Signs Temperature 98.1 F 09/25/18 22:00 Pulse Rate 96 H 09/25/18 22:00 Respiratory Rate 18 09/25/18 22:00 Blood Pressure 120/68 09/25/18 22:00 O2 Sat by Pulse Oximetry (%) 99 09/24/18 22:00 Breast Exam: Yes: Soft Uterus: Yes: Fundus Firm, Fundus below umbilicus, Non-tender Incision: Yes: Sutures intact Abdomen/GI: Yes: Abdomen soft, Tolerating PO Lochia: Yes: Rubra Lochia, amount: Small Extremities: Yes: Calves non-tender Perineum: Yes: Intact Activity: Ambulating - Labs Labs: CBC WBC 18.9 K/mm3 (4.0-10.0) H 09/24/18 07:00 RBC 2.86 M/mm3 (3.60-5.2) L 09/24/18 07:00 Hgb 10.0 GM/dL (10.7-15.3) L 09/24/18 07:00 Hct 29.3 % (32.4-45.2) L D 09/24/18 07:00 MCV 102.6 fl (80-96) H 09/24/18 07:00 MCH 34.8 pg (25.7-33.7) H 09/24/18 07:00 MCHC 33.9 g/dl (32.0-36.0) 09/24/18 07:00 RDW 13.2 % (11.6-15.6) 09/24/18 07:00 Plt Count 221 K/MM3 (134-434) D 09/24/18 07:00 MPV 10.1 fl (7.5-11.1) 09/24/18 07:00 Absolute Neuts (auto) 16.0 K/mm3 (1.5-8.0) H 09/24/18 07:00 Neutrophils % 84.6 % (42.8-82.8) H 09/24/18 07:00 Lymphocytes % 9.2 % (8-40) D 09/24/18 07:00 Monocytes % 5.9 % (3.8-10.2) 09/24/18 07:00 Eosinophils % 0.1 % (0-4.5) 09/24/18 07:00 Basophils % 0.2 % (0-2.0) 09/24/18 07:00 Nucleated RBC % 0 % (0-0) 09/24/18 07:00 Assessment/Plan 28yo P1 s/p primary LT C/S, doing well stable, afebrile. Asymptomatic for anemia. Post op care reviewed. Continue routine care. Ambulation encouraged Advance diet as tolerated. HIV test is negative
[2018-09-26] MEDS: ACETAMINOPHEN 325 MG TABLET (FP) PO PRN ×3 (08:00→22:39)
[2018-09-26] MEDS: SIMETHICONE 80 MG TAB.CHEW (FP) PO PRN ×3 (08:00→22:40)
[2018-09-26] MEDS: IBUPROFEN 600 MG TABLET (FP) PO PRN ×3 (08:01→22:38)
[2018-09-26] MEDS: ENOXAPARIN NA (PORCINE) 40 MG/0.4 ML DISP.SYRIN SQ SCH (09:45)
[2018-09-26] MEDS: PRENATAL VITAMINS W/ FOLIC ACID TABLET (FP) PO SCH (09:45)
[2018-09-26] MEDS: SENNOSIDES/DOCUSATE COMBO (SENNA PLUS) TABLET (UD) PO PRN (22:40)
[2018-09-26] MEDS: OXYTOCIN 30 UNITS in 0.9% NS 30 UNIT/500 ML INFUS.BAG IVPB SCH (23:53)
[2018-09-26] MEDS: AMPICILLIN - 1 GM in SODIUM CHLORIDE 100 ML IVPB SCH (23:55)
--- NOTE | 2018-09-27 07:34 | PN ---
Post Progress Note - Subjective Subjective: Patient without acute complaints. Reports tolerating oral intake without nausea or vomiting. Ambulating without dizziness. Denies fevers or chills. Pain well controlled with oral pain medication. Started yesterday Passing flatus, moved bowels Post Day: 4 Type of Delivery: Primary C/S Vital Signs: Vital Signs Temperature 98.3 F 09/26/18 22:00 Pulse Rate 97 H 09/26/18 22:00 Respiratory Rate 18 09/26/18 22:00 Blood Pressure 116/75 09/26/18 22:00 O2 Sat by Pulse Oximetry (%) 99 09/24/18 22:00 Breast Exam: Yes: Soft Uterus: Yes: Fundus Firm, Fundus below umbilicus Incision: Yes: Sutures intact. No: Redness, Oozing Abdomen/GI: Yes: Abdominal Distention (mild, soft), Tender (incisional), Passing flatus, Tolerating PO Lochia: Yes: Serosa Lochia, amount: Small Extremities: Yes: Calves non-tender, Edema (trace) Perineum: Yes: Episiotomy Activity: Ambulating - Labs Labs: CBC WBC 11.4 K/mm3 (4.0-10.0) H 09/26/18 06:55 RBC 2.72 M/mm3 (3.60-5.2) L 09/26/18 06:55 Hgb 9.4 GM/dL (10.7-15.3) L 09/26/18 06:55 Hct 28.0 % (32.4-45.2) L 09/26/18 06:55 MCV 103.2 fl (80-96) H 09/26/18 06:55 MCH 34.7 pg (25.7-33.7) H 09/26/18 06:55 MCHC 33.6 g/dl (32.0-36.0) 09/26/18 06:55 RDW 13.5 % (11.6-15.6) 09/26/18 06:55 Plt Count 274 K/MM3 (134-434) D 09/26/18 06:55 MPV 8.8 fl (7.5-11.1) D 09/26/18 06:55 Absolute Neuts (auto) 9.1 K/mm3 (1.5-8.0) H 09/26/18 06:55 Neutrophils % 79.9 % (42.8-82.8) 09/26/18 06:55 Lymphocytes % 14.0 % (8-40) D 09/26/18 06:55 Monocytes % 4.3 % (3.8-10.2) 09/26/18 06:55 Eosinophils % 1.3 % (0-4.5) D 09/26/18 06:55 Basophils % 0.5 % (0-2.0) 09/26/18 06:55 Nucleated RBC % 0 % (0-0) 09/26/18 06:55 Assessment/Plan 28 yo POD # 4 s/p 1 CD, afebrile, vital signs stable, doing well 1. Patient stable for discharge home today. 2. Patient encouraged to contact MD for: - Severe pain not controlled by oral pain medication - Fevers or chills - Nausea or vomiting, intolerance of oral intake - Incision redness, tenderness or discharge 3. Patient to follow up in office in 1-2 weeks for incision check, 4-6 weeks for visit
[2018-09-27 08:06] VITALS: BP 128/67; PULSE 72; TEMP 98.5
--- NOTE | 2018-09-27 09:02 | DS ---
Physical Exam-ECOLOGY TEACHER Vital Signs: Vital Signs Temperature 98.5 F 09/27/18 08:01 Pulse Rate 72 09/27/18 08:01 Respiratory Rate 18 09/27/18 08:01 Blood Pressure 128/67 09/27/18 08:01 O2 Sat by Pulse Oximetry (%) 99 09/24/18 22:00 Labs: CBC, BMP 09/26/18 06:55 09/22/18 22:30 Delivery - Delivery Type of Anesthesia: Epidural Episiotomy/Laceration: Midline EBL (cc): 600 Delivery, Single - Stages of Labor Date 1st Stage Initiatied: 09/22/18 Time 1st Stage Initiated: 14:00 Date 2nd Stage Initiated: 09/23/18 Time 2nd Stage Initiated: 06:00 Date of Delivery: 09/23/18 Time of Delivery: 19:52 Time Placenta Delivered: 19:53 - Condition of Banking Attorney/Renovation Plant Supervisor Present: Yes Name: Irene Barnhart Infant Gender: Female Position: Right, OA Total Hours ROM (Hrs/Mins): 29 HOURS/52 MINUTES - 1 Minute Total Score: 9 5 Minutes Total Score: 9 - [place] Feeding Plan Initial Plan: Elected not to breastfeed exclusively throughout hospitalization Discharge Summary Reason For Visit: LABOR Current Active Problems Anemia (Acute) delivery delivered (Acute) Procedures: Principal: Delivery Other Procedures: Vacuum assisted delivery (failed); augmentation of labor Hospital Course: Patient admitted with SROM, HIV screen positive Started on AZT Augmented with pitocin Progressed to fully diated, required vacuum assistance of delivery, failed vacuum attempt proceeded with delivery POD # 1 patient ambulating, voiding and passing gas CBC with mild asymptomatic anemia HIV confirmation NEGATIVE Patient fulfilled all criteria for discharge home POD #4 Condition: Good - Instructions Diet, Activity, Other Instructions: RTO 1 wk for incision check, 4-6 wks for PP visit Physical activity Resume your normal everyday activity as tolerated no heavy lifting or exercise until seen by your surgeon. You may walk unlimited isatu of and climb stairs. You may resume driving the car when you feel safe and comfortable behind the wheel. No sexual activity as instructed. Wound care If you have a bandage, leave it on, and keep dry for 48-72 hours. After that time discard the outer bandage. If they are tapes on the skin under the out of bandage leave them in place. They will peel off in the next 7 to 10 days. Do Not Peel them off. You may shower the day after surgery. If there are tapes present on the skin, you may shower over them. Diet There are no dietary restrictions. Eat healthy, high-fiber foods. Drink 6 to 8 glasses of liquid each day. This will assist in keeping your bowels are regular. Pain management You may take Tylenol or acetaminophen or Ibuprofen (for example, Motrin, Advil etc.) from my pain prescription medication is ordered should be taken as prescribed for moderate to severe pain. Call MD for any of the following: Severe pain not relieved by medication Fever of 101 or higher Excessive bleeding or drainage on dressing Inability to urinate Referrals: Anselmo Gallegos MD [Staff Physician] - Casimiro Guerra MD [Staff Physician] - Disposition: HOME - Home Medications Comprehensive Discharge Medication List: Ambulatory Orders Multivit-Min/Iron/Folic Acid/K [Multi-Day Plus Minerals Tablet] 1 tab PO BID 04/02 Doxycycline Monohydrate [Monodox] 100 mg PO BID 3 Days #6 capsule 09/27/18 Oxycodone HCl/Acetaminophen [Percocet 5-325 mg Tablet] 1 tab PO Q6H #7 tablet MDD 4 09/27/18
[2018-09-27] MEDS: ENOXAPARIN NA (PORCINE) 40 MG/0.4 ML DISP.SYRIN SQ SCH (09:15)
[2018-09-27] MEDS: PRENATAL VITAMINS W/ FOLIC ACID TABLET (FP) PO SCH (09:15)
== END 2018-09-27 13:10 | disposition home or self-care (01) | DRG 540 ==
LOC: JDEL 20:35 → UNDOADMIN 21:48 → JLDR 21:48 → J3W 09-23 23:53
PROVIDERS: ADMIT Obstetrics & Gynecology; ATTEND Obstetrics & Gynecology
PROC: 0W8NXZZ Division of Female Perineum, External Approach (ICD-10-PCS; 2018-09-22)
PROC: 10D00Z1 Extraction of Products of Conception, Low, Open Approach (ICD-10-PCS; principal; 2018-09-23)
DX: O32.4XX0 Maternal care for high head at term, not applicable or unspecified (principal); D64.9 Anemia, unspecified; O76 Abnormality in fetal heart rate and rhythm complicating labor and delivery; O66.5 Attempted application of vacuum extractor and forceps; O99.02 Anemia complicating childbirth; Z3A.39 39 weeks gestation of pregnancy; Z37.0 Single live birth
CPT/HCPCS: 36415; 36600; 59025; 80048; 82803; 85025; 85610; 85730; 86593; 86704; 86705; 86706; 86707; 86803; 86850; 86900; 86901; 87389; 87536; 88307-TC

== ENCOUNTER 2022-06-30 04:45 | Day surgery (SDC) | payer OTHER ==
[2022-06-28 13:49] VITALS: BMI 51.6
[2022-06-30] MEDS ORDERED: PROPOFOL 20 ML ONE (15:47)
[2022-06-30] MEDS ORDERED: MIDAZOLAM HCL 2 MG/2 ML SINGLE DOSE VIAL ONE (15:48)
[2022-06-30] MEDS ORDERED: ceFAZolin SODIUM 1 GM VIAL IVPB ONE (16:03)
[2022-06-30] MEDS ORDERED: KETOROLAC TROMETHAMINE 30 MG/1 ML VIAL ONE (16:09)
[2022-06-30] MEDS ORDERED: ceFAZolin SODIUM 1 GM VIAL ONE (16:09)
[2022-06-30] MEDS ORDERED: DEXAMETHASONE SOD PHOSPHATE 4 MG/1 ML VIAL ONE (16:09)
[2022-06-30] MEDS ORDERED: ONDANSETRON 4 MG/2 ML VIAL ONE (16:09)
[2022-06-30] MEDS ORDERED: IBUPROFEN 800 MG/8 ML IJ IVPB PRN (16:10)
[2022-06-30] MEDS ORDERED: IBUPROFEN 600 MG TABLET (FP) PO PRN (16:10)
[2022-06-30] MEDS ORDERED: ONDANSETRON 4 MG/2 ML VIAL IVPUSH PRN ×2 (16:10→16:22)
[2022-06-30] MEDS ORDERED: oxyCODONE HCL 5 MG TABLET PO PRN ×2 (16:10→16:22)
[2022-06-30] MEDS ORDERED: ELECTROLYTE-148 SOLN 1,000 ML IV SCH (16:15)
[2022-06-30] MEDS ORDERED: ACETAMINOPHEN 1000 MG/100 ML BAG IVPB ONE (16:22)
[2022-06-30] MEDS ORDERED: LACTATED RINGERS SOLUTION 1,000 ML IV SCH (16:30)
[2022-06-30] MEDS ORDERED: ACETAMINOPHEN INJECTION 100 ML IVPB ONE (16:41)
[2022-06-30 17:48] VITALS: RESP 18
[2022-06-30 18:17] VITALS: BP 96/57; PULSE 97; TEMP 97.8
== END 2022-06-30 18:30 | disposition home or self-care (01) ==
LOC: JASU-SURG 04:45
PROVIDERS: ATTEND Obstetrics & Gynecology
PROC: 10D17ZZ Extraction of Products of Conception, Retained, Via Natural or Artificial Opening (ICD-10-PCS; principal; 2022-06-30 15:30)
DX: O02.1 Missed abortion (principal)
CPT/HCPCS: 88305-TC; 94760

== ENCOUNTER 2023-05-25 13:45 | Inpatient (IN) | payer OTHER ==
[2023-05-25] MEDS: ELECTROLYTE-148 SOLN 1,000 ML IV SCH (14:00)
[2023-05-25] MEDS ORDERED: CITRIC ACID/SODIUM CITRATE 30 ML UNIT-DOSE CUP PO ONE (14:14)
[2023-05-25 16:36] LABS: CORD BASE EXCESS -1.4 mmol/L (0-2); CORD PCO2 42.9 mmHg (30-78); CORD pH 7.366 (7.14-7.44)
[2023-05-25 16:37] LABS: CORD HCO3 23.7 mmHg (20-29); CORD PCO2 51.4 mmHg (30-78); CORD pH 7.281 (7.14-7.44)
[2023-05-25] MEDS ORDERED: ONDANSETRON 4 MG/2 ML VIAL IVPUSH PRN (16:56)
[2023-05-25] MEDS ORDERED: IBUPROFEN 600 MG TABLET (FP) PO PRN (16:56)
[2023-05-25] MEDS ORDERED: ACETAMINOPHEN 325 MG TABLET (FP) PO PRN ×2 (16:56→16:57)
[2023-05-25] MEDS ORDERED: METHYLERGONOVINE MALEATE 0.2 MG/1 ML AMP IM PRN (16:57)
[2023-05-25 17:26] VITALS: BMI 27.6
[2023-05-25] MEDS ORDERED: OXYTOCIN 20 UNITS in 0.9% NS 20 UNIT/1,000 ML INFUS.BAG IV ONE (19:51)
[2023-05-25] MEDS: OXYTOCIN 20 UNITS in 0.9% NS 20 UNIT/1,000 ML INFUS.BAG IV SCH (20:58)
[2023-05-25] MEDS: IBUPROFEN 800 MG/8 ML IJ IVPB PRN (20:58)
[2023-05-26] MEDS: CEFAZOLIN SODIUM 2 GM in DEXTROSE 5%-WATER 100 ML IVPB SCH ×3 (01:26→18:50)
[2023-05-26] MEDS ORDERED: oxyCODONE HCL 5 MG TABLET PO PRN ×2 (04:58)
[2023-05-26] MEDS: IBUPROFEN 800 MG/8 ML IJ IVPB PRN (08:20)
[2023-05-26] MEDS: ENOXAPARIN NA (PORCINE) 40 MG/0.4 ML DISP.SYRIN SQ SCH (09:01)
[2023-05-26 09:24] LABS: BASO % 0.2 % (0-2.0); EOS % 0.2 % (0-4.5); HEMATOCRIT 30.3 % (32.4-45.2); HEMOGLOBIN 10.2 GM/dL (10.7-15.3); LYMPH % 10.1 % (8-40); MCH 35.1 pg (25.7-33.7); MCHC 33.7 g/dl (32.0-36.0); MEAN CELL VOLUME 104.3 fl (80-96); MEAN PLT VOLUME 8.4 fl (7.5-11.1); MONO % 5.5 % (3.8-10.2); PLATELET COUNT 293 10^3/uL (134-434); RDW 13.7 % (11.6-15.6); WHITE BLOOD COUNT 13.5 K/mm3 (4.0-10.0)
[2023-05-26] MEDS: SIMETHICONE 80 MG TAB.CHEW (FP) PO PRN (12:34)
[2023-05-26] MEDS: IBUPROFEN 600 MG TABLET (FP) PO PRN ×3 (14:24→23:02)
[2023-05-26] MEDS: ELECTROLYTE-148 SOLN 1,000 ML IV SCH (14:25)
[2023-05-26] MEDS ORDERED: BISACODYL 10 MG SUPP.RECT RC PRN (16:58)
[2023-05-26] MEDS ORDERED: CEFAZOLIN SODIUM 2 GM in DEXTROSE 5%-WATER 100 ML IVPB SCH (18:30)
[2023-05-26] MEDS: OXYTOCIN 20 UNITS in 0.9% NS 20 UNIT/1,000 ML INFUS.BAG IV SCH (18:39)
[2023-05-27] MEDS: IBUPROFEN 600 MG TABLET (FP) PO PRN ×4 (04:41→19:09)
[2023-05-27] MEDS: ENOXAPARIN NA (PORCINE) 40 MG/0.4 ML DISP.SYRIN SQ SCH (10:06)
[2023-05-27] MEDS: SIMETHICONE 80 MG TAB.CHEW (FP) PO PRN ×2 (10:06→19:09)
[2023-05-28] MEDS: IBUPROFEN 600 MG TABLET (FP) PO PRN ×2 (06:31→10:25)
[2023-05-28] MEDS: SIMETHICONE 80 MG TAB.CHEW (FP) PO PRN ×2 (06:31→09:12)
[2023-05-28 08:04] LABS: BASO % 0.2 % (0-2.0); EOS % 1.7 % (0-4.5); HEMATOCRIT 29.6 % (32.4-45.2); HEMOGLOBIN 9.9 GM/dL (10.7-15.3); LYMPH % 11.7 % (8-40); MCH 34.9 pg (25.7-33.7); MCHC 33.4 g/dl (32.0-36.0); MEAN CELL VOLUME 104.5 fl (80-96); MEAN PLT VOLUME 7.9 fl (7.5-11.1); MONO % 5.4 % (3.8-10.2); PLATELET COUNT 317 10^3/uL (134-434); RBC 2.83 M/mm3 (3.60-5.2); RDW 13.7 % (11.6-15.6)
[2023-05-28] MEDS: ENOXAPARIN NA (PORCINE) 40 MG/0.4 ML DISP.SYRIN SQ SCH (10:25)
[2023-05-28 11:16] VITALS: BP 102/68; PULSE 83; RESP 16; TEMP 98.2
== END 2023-05-28 14:30 | disposition home or self-care (01) | DRG 540 ==
LOC: JLDR 13:45 → J3W 19:58
PROVIDERS: ADMIT Obstetrics & Gynecology; ATTEND Obstetrics & Gynecology
PROC: 10D00Z1 Extraction of Products of Conception, Low, Open Approach (ICD-10-PCS; principal; 2023-05-25)
DX: O34.211 Maternal care for low transverse scar from previous cesarean delivery (principal); N85.8 Other specified noninflammatory disorders of uterus; Z3A.39 39 weeks gestation of pregnancy; Z37.0 Single live birth
CPT/HCPCS: 36415; 36600; 80048; 82803; 85025; 85610; 85730; 86780; 86850; 86900; 86901; 88307-TC

== ENCOUNTER 2024-10-17 02:57 | Inpatient (IN) | payer OTHER ==
[2024-10-17] MEDS: ELECTROLYTE-148 SOLN 500 ML IV ONE (06:10)
[2024-10-17 06:26] VITALS: BMI 28.1
[2024-10-17] MEDS: ELECTROLYTE-148 SOLN 1,000 ML IV SCH (06:45)
[2024-10-17] MEDS: CITRIC ACID/SODIUM CITRATE 30 ML UNIT-DOSE CUP PO ONE (09:45)
[2024-10-17] MEDS ORDERED: morphine SULFATE/PF 1 MG/2 ML (2cc Syringe - QUVA) ONE (10:33)
[2024-10-17] MEDS ORDERED: FENTANYL CITRATE/PF 50 MCG/ML VIAL ONE (10:33)
[2024-10-17] MEDS ORDERED: ONDANSETRON 4 MG/2 ML VIAL ONE (10:40)
[2024-10-17] MEDS ORDERED: ceFAZolin SODIUM 1 GM VIAL ONE (10:40)
[2024-10-17] MEDS ORDERED: OXYTOCIN 10 UNITS/ML VIAL ONE ×2 (11:09→11:24)
[2024-10-17] MEDS ORDERED: CALCIUM CHLORIDE 1 GM/10 ML *DISP.SYRIN ONE (11:14)
[2024-10-17 12:10] LABS: CORD HCO3 24.9 mmHg (20-29); CORD PCO2 50.3 mmHg (30-78); CORD PCO2 61.9 mmHg (30-78); CORD pH 7.257 (7.14-7.44); CORD pH 7.313 (7.14-7.44)
[2024-10-17] MEDS ORDERED: METHYLERGONOVINE MALEATE 0.2 MG/1 ML AMP IM PRN (12:13)
[2024-10-17] MEDS ORDERED: OXYTOCIN 20 UNITS in 0.9% NS 20 UNIT/1,000 ML INFUS.BAG IV ONE (13:02)
[2024-10-17] MEDS: OXYTOCIN 20 UNITS in 0.9% NS 20 UNIT/1,000 ML INFUS.BAG IV SCH (13:15)
[2024-10-17] MEDS ORDERED: IBUPROFEN (CALDOLOR) 800 MG/200 ML PREMIX BAGS IVPB ONE (14:14)
[2024-10-17] MEDS: IBUPROFEN 800 MG/8 ML IJ IVPB PRN (14:25)
[2024-10-17] MEDS: ONDANSETRON 4 MG/2 ML VIAL IVPUSH PRN (14:56)
[2024-10-17 16:02] VITALS: RESP 18
[2024-10-17] MEDS: ACETAMINOPHEN 1000 MG/100 ML BAG IVPB PRN (18:01)
[2024-10-17] MEDS: CEFAZOLIN SODIUM 2 GM in DEXTROSE 5%-WATER 100 ML IVPB SCH (18:28)
[2024-10-18] MEDS ORDERED: oxyCODONE HCL 5 MG TABLET PO PRN (00:13)
[2024-10-18 07:12] LABS: ABSOLUTE IMMATURE GRANULOCYTES 0.05 x10^3/uL (0.0-0.031); BASOPHILS # 0.03 x10^3/uL (0.01-0.08); EOSINOPHIL % 0.6 % (0.7-5.8); EOSINOPHILS # 0.06 x10^3/uL (0.04-0.36); HEMATOCRIT 33.2 % (34.1-44.9); MCHC 33.1 g/dl (32.2-35.5); MEAN CELL VOLUME 105.7 fl (79.4-94.8); MEAN PLT VOLUME 10.5 fl (9.4-12.3); MONOCYTE # 0.68 x10^3/uL (0.24-0.86); MONOCYTE % 6.5 % (4.7-12.5); PLATELET COUNT 248 x10^3/uL (182-369); RDW 13.2 % (12.1-16.8)
[2024-10-18] MEDS ORDERED: OXYTOCIN 30 UNITS in 0.9% NS 30 UNIT/500 ML INFUS.BAG IVPB ONE (09:52)
[2024-10-18] MEDS: ENOXAPARIN NA (PORCINE) 40 MG/0.4 ML DISP.SYRIN SQ SCH (09:55)
[2024-10-18] MEDS: IBUPROFEN 600 MG TABLET (FP) PO PRN (10:24)
[2024-10-18] MEDS ORDERED: BISACODYL 10 MG SUPP.RECT RC PRN (12:13)
[2024-10-18] MEDS: FLU VACCINE (FLULAVAL) PF 45 MCG/0.5 ML SYRINGE 2024-2025 IM ONE (13:30)
[2024-10-18] MEDS: SIMETHICONE 80 MG TAB.CHEW (FP) PO PRN (17:08)
[2024-10-18] MEDS: ACETAMINOPHEN 325 MG TABLET (FP) PO PRN (17:08)
[2024-10-19] MEDS: oxyCODONE HCL 5 MG TABLET PO PRN (14:41)
[2024-10-20 07:38] VITALS: BP 115/84; PULSE 97; TEMP 97.9
[2024-10-20 08:21] LABS: ABSOLUTE IMMATURE GRANULOCYTES 0.05 x10^3/uL (0.0-0.031); BASOPHILS # 0.02 x10^3/uL (0.01-0.08); EOSINOPHIL % 1.7 % (0.7-5.8); EOSINOPHILS # 0.16 x10^3/uL (0.04-0.36); HEMOGLOBIN 11.2 g/dL (11.2-15.7); MCHC 32.9 g/dl (32.2-35.5); MEAN CELL VOLUME 106.6 fl (79.4-94.8); MEAN PLT VOLUME 10.1 fl (9.4-12.3); MONOCYTE # 0.53 x10^3/uL (0.24-0.86); MONOCYTE % 5.6 % (4.7-12.5); PLATELET COUNT 320 x10^3/uL (182-369); RDW 13.2 % (12.1-16.8)
== END 2024-10-20 13:45 | disposition home or self-care (01) | DRG 540 ==
LOC: UNDOADMIN 02:57 → JLDR 02:57 → J3W 14:20
PROVIDERS: ADMIT Obstetrics & Gynecology; ATTEND Obstetrics & Gynecology
PROC: 10D00Z1 Extraction of Products of Conception, Low, Open Approach (ICD-10-PCS; principal; 2024-10-17)
DX: O34.211 Maternal care for low transverse scar from previous cesarean delivery (principal); Z3A.39 39 weeks gestation of pregnancy; Z37.0 Single live birth; O99.02 Anemia complicating childbirth; D64.9 Anemia, unspecified
CPT/HCPCS: 36415; 36600; 59409; 80048; 82803; 82962; 85025; 85610; 85730; 86780; 86850; 86900; 86901; 88307-TC